=== PATIENT | female | born 1970 | race Caucasian/White ===

== ENCOUNTER 2021-01-30 11:25 | Emergency (ER) | payer OTHER ==
[2021-01-30] MEDS ORDERED: NAPROSYN500 MG PO (14:05)
== END 2021-01-30 14:20 | disposition home or self-care (01) ==
LOC: ER1 11:25
DX: S93.401A Sprain of unspecified ligament of right ankle, initial encounter (principal); S93.601A Unspecified sprain of right foot, initial encounter; S93.402A Sprain of unspecified ligament of left ankle, initial encounter; S93.602A Unspecified sprain of left foot, initial encounter; Z88.0 Allergy status to penicillin; W19.XXXA Unspecified fall, initial encounter
CPT/HCPCS: 72100; 73590; 73600; 73630; 99283; J1885

== ENCOUNTER 2021-06-13 11:43 | Emergency (ER) | payer OTHER ==
[~2021-06-13 11:43] MED LIST: NAPROSYN500 MG PO
[2021-06-13 13:46] LABS: HEMOGLOBIN 14.3 gm/dl (12.3-15.3); RED BLOOD COUNT 4.86 M/UL (4.00-5.10); WHITE BLOOD COUNT 13.7 K/UL (4.5-11.0)
[2021-06-13 14:22] LABS: BUN/CREATININE RATIO 30 (0-10)
[2021-06-13] MEDS ORDERED: TERCONAZOLE20 GM VG (16:11)
[2021-06-13] MEDS ORDERED: PYRIDIUM200 MG PO (16:11)
[2021-06-13] MEDS ORDERED: IBU600 MG PO (16:20)
[2021-06-13] MEDS ORDERED: TOPICAINE30 GM TP (16:30)
[2021-06-14] MEDS ORDERED: EPIPEN 2-P0.3 MG/0.3 INJ (06:34)
[2021-06-14] MEDS ORDERED: PREDNISONE10 MG PO (06:34)
[2021-06-14] MEDS ORDERED: PEPCID20 MG PO (06:34)
[2021-06-14] MEDS ORDERED: BENADRYL 50MG C50 MG PO (06:34)
== END 2021-06-13 17:00 | disposition home or self-care (01) ==
LOC: ER1 11:43
PROVIDERS: Nurse Practitioner
DX: N76.0 Acute vaginitis (principal); F12.90 Cannabis use, unspecified, uncomplicated; R11.2 Nausea with vomiting, unspecified; R30.0 Dysuria; R10.9 Unspecified abdominal pain; Z88.0 Allergy status to penicillin; Z88.8 Allergy status to other drugs, medicaments and biological substances; Z79.899 Other long term (current) drug therapy
CPT/HCPCS: 80053; 80307; 81001; 83605; 83690; 85025; 87040; 87086; 96374; 96375; 99284; J1885; J2270; J2405; J7030; Q9967

== ENCOUNTER 2021-06-14 02:31 | Emergency (ER) | payer OTHER ==
[~2021-06-14 02:31] MED LIST changes: +IBU600 MG PO; +PYRIDIUM200 MG PO; +TERCONAZOLE20 GM VG; +TOPICAINE30 GM TP
[2021-06-14] MEDS ORDERED: EPIPEN 2-P0.3 MG/0.3 INJ (06:34)
[2021-06-14] MEDS ORDERED: PREDNISONE10 MG PO (06:34)
[2021-06-14] MEDS ORDERED: PEPCID20 MG PO (06:34)
[2021-06-14] MEDS ORDERED: BENADRYL 50MG C50 MG PO (06:34)
[2021-06-15] MEDS ORDERED: TORADOL 10 MG T10 MG PO (17:25)
[2021-06-15] MEDS ORDERED: ONDANSETRON ODT4 MG SL (17:25)
[2021-06-15] MEDS ORDERED: PREDNISONE 20 M20 MG PO (17:25)
== END 2021-06-14 06:55 | disposition home or self-care (01) ==
LOC: ER1 02:31
DX: G43.909 Migraine, unspecified, not intractable, without status migrainosus (principal); T36.95XA Adverse effect of unspecified systemic antibiotic, initial encounter; T40.2X5A Adverse effect of other opioids, initial encounter; Z79.899 Other long term (current) drug therapy; R60.0 Localized edema
CPT/HCPCS: 96365; 96372; 96375; 96376; 99283; J2930; J3030

== ENCOUNTER 2021-06-15 13:31 | Emergency (ER) | payer OTHER ==
[~2021-06-15 13:31] MED LIST changes: +BENADRYL 50MG C50 MG PO; +EPIPEN 2-P0.3 MG/0.3 INJ; +PEPCID20 MG PO; +PREDNISONE10 MG PO
[2021-06-15 14:42] LABS: HEMOGLOBIN 12.4 gm/dl (12.3-15.3); WHITE BLOOD COUNT 15.8 K/UL (4.5-11.0)
[2021-06-15 14:45] LABS: RED BLOOD COUNT 4.34 M/UL (4.00-5.10)
[2021-06-15 15:15] LABS: BUN/CREATININE RATIO 38 (0-10)
[2021-06-15] MEDS ORDERED: PREDNISONE 20 M20 MG PO (17:25)
[2021-06-15] MEDS ORDERED: TORADOL 10 MG T10 MG PO (17:25)
[2021-06-15] MEDS ORDERED: ONDANSETRON ODT4 MG SL (17:25)
== END 2021-06-15 18:00 | disposition home or self-care (01) ==
LOC: ER1 13:31
PROVIDERS: Physician Assistant
DX: U07.1 COVID-19 (principal); R68.84 Jaw pain; Z87.440 Personal history of urinary (tract) infections; Z88.0 Allergy status to penicillin; Z88.6 Allergy status to analgesic agent
CPT/HCPCS: 0240U; 70491; 80053; 85025; 87081; 87880; 96374; 96375; 99284; J1885; J2405; Q9967